=== PATIENT | male | born 1935 | race Caucasian/White ===

== ENCOUNTER 2017-07-02 12:55 | Emergency (ER) | payer MEDICARE, OTHER ==
[~2017-07-02] VITALS: Ht 185.4 cm; Wt 87.7 kg
[2017-07-02 12:55] VITALS: TEMP 98
[2017-07-02 13:29] LABS: BASO # 0.1 (0.0-0.2); BASO % 0.9 % (0.0-2.0); EOS # 0.1 (0.0-0.7); EOS % 0.9 % (0-4.0); GRAN % 85.2 % (42.2-75.2); HEMATOCRIT 42.4 % (42.0-52.0); HEMOGLOBIN 14.1 g/dl (13.5-18.0); LYMPH # 0.7 (1.2-3.4); LYMPH % 6.6 % (20.0-51.0); MEAN CELL VOLUME 90 fl (80.0-100.0); MEAN CORPUSCULAR HEMOGLOBIN 30 pg (27.0-31.0); MEAN CORPUSCULAR HGB CONC 33 g/dl (33.0-37.0); MEAN PLATELET VOLUME 10.1 fl (7.4-10.4); MONO # 0.6 (0.1-0.6); PLATELET COUNT 175 K/mm3 (130-400); RED BLOOD COUNT 4.73 M/mm3 (4.20-5.60); REDCELL DISTRIBUTION WIDTH-CV 12.4 % (11.5-14.5)
[2017-07-02 13:41] LABS: ALBUMIN 3.9 gm/dL (3.5-5.0); BILIRUBIN,TOTAL 0.5 mg/dL (0.0-1.0); C-REACTIVE PROTEIN 1.9 mg/dL (0.0-0.9); CALCIUM 8.6 mg/dL (8.4-10.2); CREATININE, serum 1.1 mg/dL (0.66-1.25); POTASSIUM 4.1 mmol/L (3.4-5.0); TOTAL PROTEIN 7.1 gm/dL (6.4-8.2)
[2017-07-02 14:28] LABS: COLLECTION METHOD CLEAN CATCH
[2017-07-02] MEDS ORDERED: TAMIFLU 75MG75 MG PO (14:30)
[2017-07-02] MEDS ORDERED: ZOFRAN ODT4 MG PO (14:31)
[2017-07-02 14:36] LABS: BUDDING YEAST Present /hpf; MUCOUS Present /lpf; PH 6 (5-8); SQUAMOUS EPITHELIAL None Seen /hpf; URINE APPEARANCE Cloudy; URINE BACTERIA None Seen /hpf; URINE BILIRUBIN Negative (NEGATIVE); URINE BLOOD 1+ (NEGATIVE); URINE COLOR Yellow; URINE GLUCOSE Negative (NEGATIVE); URINE KETONE 1+ (NEGATIVE); URINE LEUKOCYTE ESTERASE Negative (NEGATIVE); URINE NITRATE Negative (NEGATIVE); URINE PROTEIN(semi-quant) Negative (NEGATIVE); URINE UROBILINOGEN Negative (NEGATIVE)
[2017-07-02 14:46] VITALS: BP 137/81; PULSE 78
== END 2017-07-02 14:53 | disposition home or self-care (01) ==
LOC: COL.ER 12:55
PROVIDERS: Family Medicine
DX: J10.1 Influenza due to other identified influenza virus with other respiratory manifestations (principal); E86.0 Dehydration; Z90.49 Acquired absence of other specified parts of digestive tract
CPT/HCPCS: J7030

== ENCOUNTER → 2018-01-01 | Outpatient (REF) ==
[~2018-01-01] MED LIST: TAMIFLU 75MG75 MG PO; ZOFRAN ODT4 MG PO
== END ==
LOC: ZLAB.WCH 16:18
DX: Z01.89 Encounter for other specified special examinations (principal)
CPT/HCPCS: G0103

== ENCOUNTER 2018-04-18 10:52 | Inpatient (IN) | payer MEDICARE, OTHER ==
[~2018-04-18] VITALS: Ht 182.9 cm; Wt 84.0 kg
[2018-06-05] VITALS (12 sets, daily range): BP systolic 129–155; BP diastolic 61–81; PULSE 54–97; TEMP 97.1–98.5
[2018-06-05] MEDS ORDERED: VITAMIN C500 MG PO (07:28)
[2018-06-05] MEDS ORDERED: GLUCOSAMINE SUL1 TAB PO (07:28)
--- NOTE | 2018-06-05 12:40 | NUR ---
PATIENT BACK IN ROOM 331 POST OP RTK. A&O. VSS. DENIES PAIN. PATIENT IS UNABLE TO MOVE BLE AT THIS TIME. RTK DRESSING IS CD&I WITH AQUACEL AND ICE PACK INPLACE. TECHNOL BRACE TO RLE. TEDS & SCD'S TO BLE. BLANKENSHIP TO DEPENDENT DRAINAGE WITH SMALL AMOUNTS OF CLEAR YELLOW URINE NOTED. IV FLUIDS INFUSING VIA PUMP. LIQUIDS AT BEDSIDE. HEAD TO TOE ASSESSMENT WNL. FAMILY AT BEDSIDE. ORIENTED TO ROOM. CALL LIGHT IN REACH. NO OTHER NEEDS.
--- NOTE | 2018-06-05 13:50 | NUR ---
PATIENT CALLED OUT C/O NAUSEA. NOTED 150CC OF DARK GREEN EMESIS. GAVE PRN ZOFRAN IV. COOL CLOTH ON HEAD. PATIENT REPORTS HE FEELS BETTER. AT BEDSIDE. WILL MONITOR.
--- NOTE | 2018-06-05 20:00 | NUR ---
Assessment completed. Patient is A&O x 4. VSS, on room air. Scheduled Tylenol given per orders and started Ultram for pain control. Patient reports that he does not like to take Oxycodone as it makes him mean. Aquacell dressing to right knee is CDI with an ice pack. Pedal pulses intact. BLE preet hose/scds on. Patient is able to lift is RLE with no assistance. Ambulated with standby assist with walker and gait belt, ambulated approximately 200 feet in the hallway with staff this evening. Tolerating diet with no c/o nausea. Voiding with no difficulities. IVF infusing with intermittent antibiotic. Denies any concerns or needs. Bed is in a low position with call light in reach.
[2018-06-06 00:18] VITALS: BP 123/73; PULSE 64; TEMP 97.9
[2018-06-06 03:41] VITALS: BP 131/65; PULSE 67; TEMP 98.2
--- NOTE | 2018-06-06 04:43 | NUR ---
Patient has rested for short periods of time through the night. VSS, remains on room air. Tramadol and scheduled Tylenoles have been given for pain control, refuses Oxycodone as he states in the past it has made him mean. Technol brace removed at this time from E. Aquacell dressing to right knee remains CDI with a fresh ice pack applied. Denies any nausea. No concerns or needs at this time. Bed remains in a low position with call light in reach.
[2018-06-06 06:06] LABS: HEMATOCRIT 38.4 % (42.0-52.0)
--- NOTE | 2018-06-06 07:06 | NUR ---
Report from Rachel HUERTA. Jaylen DAMON in to see patient see computer for orders.
[2018-06-06 07:20] VITALS: BP 134/71; PULSE 71; TEMP 97.9
[2018-06-06] MEDS ORDERED: ULTRAM 50MG TAB50 MG PO (07:20)
[2018-06-06] MEDS ORDERED: ASPI325T6 PO (07:20)
[2018-06-06] MEDS ORDERED: TYLENOL 500MG500 MG PO (07:21)
[2018-06-06] MEDS ORDERED: COLACE 100100 MG/CAP PO (07:21)
--- NOTE | 2018-06-06 08:57 | NUR ---
PT EATING BREAKFAST, AM MEDS GIVEN ORDERED. LAST DOSE OF IV ABX COMPLTE. PT WOULD LIKE TO DISCHARGE LATER TO DAY. IV FLUIDS DISCONTINUED PER ORDERS. PT TO HAVE BLANKENSHIP REMOVED AFTER AM THEARPY.
--- NOTE | 2018-06-06 09:39 | NUR ---
PT UNABLE TO COMPLETE AM THERAPY. BECAME DIAPHORETIC AND DIZZY WITH MOVEMENT. PT SETTLED TO RECLINER AND PT REPORTS FEELING BETTER. WILL CONTINUE TO MONITOR.
[2018-06-06 11:27] VITALS: BP 136/59; PULSE 64; TEMP 97.6
--- NOTE | 2018-06-06 12:22 | NUR ---
First visit from the stock patcher. No needs right now.
--- NOTE | 2018-06-06 14:20 | NUR ---
pt did better this pm therapy. able to ambulate to stairs and back with therapy stand by. Pt wants to discharge today. Varela catheter discontinued per orders.
--- NOTE | 2018-06-06 14:26 | NUR ---
BRUCE met with patient to discuss discharge planning. Patient lives in [place] with his [place]. His PCP Is Dr Emmanuel Hensley and he obtains his medications from [facility]. Patient has the equipment needed and plans to return home with outpatient therapy. Patients would like to know if patient will dc today. BRUCE talks with nurse and informs them that he will let them know once he has heard from the dr. There are no anticipated discharge needs at this time.
[2018-06-06 15:53] VITALS: BP 137/64; PULSE 62; TEMP 97.8
--- NOTE | 2018-06-06 18:54 | NUR ---
Report to Rachel HUERTA.
--- NOTE | 2018-06-06 19:45 | NUR ---
Assessment completed. Patient is A&O x 4. VSS, on room air. Denies any pain at this time. Aquacell dressing to right knee is CDI with an ice pack maintained to knee. Pedal pulses intact. BLE preet hose/scds on. Patient is up with standby assist with walker, gait is steady. Ambulated 200 feet this evening with walker in the hallway. Tolerating diet with no c/o nausea. Voiding with no difficulities. INT to left wrist. Patient voices disappointment that he wasn't able to discharge today but is hoping to discharge early tomorrow. Denies any concerns or needs at this time. Bed is in a low position with call light in reach.
[2018-06-06 20:31] VITALS: BP 138/66; PULSE 74; TEMP 98
--- NOTE | 2018-06-06 22:38 | NUR ---
Patient requested Ultram for right knee/thigh pain, reports it only hurts when he lifts his leg up to go to the bathroom. Patient was up independently in room with walker to the bathroom. Technol brace applied to RLE at this time.
[2018-06-07 00:54] VITALS: BP 139/62; PULSE 77; TEMP 98.2
[2018-06-07 05:09] VITALS: BP 140/78; PULSE 63; TEMP 98.1
[2018-06-07 06:05] LABS: HEMATOCRIT 35.7 % (42.0-52.0); HEMOGLOBIN 12.1 g/dl (13.5-18.0)
--- NOTE | 2018-06-07 06:31 | NUR ---
Patient has rested well through the night, states he's ready to go home today. VSS. Pain controlled with Ultram. Technol brace removed at this time. Aquacell dressing to right knee remains CDI with a fresh ice pack applied this morning. Denies any concerns or needs at this time.
[2018-06-07] MEDS ORDERED: ULTRAM 50MG TAB50 MG PO (06:42)
--- NOTE | 2018-06-07 06:51 | NUR ---
Report from Rachel HUERTA.
[2018-06-07 08:12] VITALS: BP 136/65; PULSE 81; TEMP 99.2
--- NOTE | 2018-06-07 09:32 | NUR ---
PT UP TO SHOWER WITH OT. DRESSING CHANGE COMPLETE ORDERED. SM AMT OF [place] DRAINAGE TO DISTAL PORTION OF INCISION. PT TOLERATED WELL.
--- NOTE | 2018-06-07 12:32 | NUR ---
DISCHARGE INSTRUCTIONS GIVEN TO PATIENT AND SPOUSE. PT TAKEN TO FRONT PER WHEEL CHAIR.
== END 2018-06-07 10:30 | disposition home or self-care (01) | DRG 470 ==
LOC: JCC 06-05 06:38
PROVIDERS: ADMIT Orthopaedic Surgery
PROC: 0SRC0J9 Replacement of Right Knee Joint with Synthetic Substitute, Cemented, Open Approach (ICD-10-PCS; principal; 2018-06-05 09:00)
DX: M17.11 Unilateral primary osteoarthritis, right knee (principal); Z87.891 Personal history of nicotine dependence
CPT/HCPCS: A4314; A9284; C1713; C1776; J0690; J1100; J2250; J2405; J2704; J7030; J7120

== ENCOUNTER → 2018-05-24 | Outpatient (CLI) | payer MEDICARE, OTHER | LOC: COL.LAB 11:23 | DX: Z01.812 Encounter for preprocedural laboratory examination (principal) ==

== ENCOUNTER 2022-07-22 08:11 | Emergency (ER) | payer MEDICARE, OTHER ==
[~2022-07-22] VITALS: Ht 185.4 cm; Wt 81.8 kg
[~2022-07-22 08:11] MED LIST changes: +ASPI325T6 PO; +COLACE 100100 MG/CAP PO; +GLUCOSAMINE SUL1 TAB PO; +PERCOCET 325 MG1 TA2 PO; +TYLENOL 500MG500 MG PO; +ULTRAM 50MG TAB50 MG PO; +VITAMIN C500 MG PO
[2022-07-22 08:41] VITALS: TEMP 97.9
[2022-07-22 09:10] LABS: BASO % 0.5 % (0.0-2.0); EOS # 0.1 K/mm3 (0.0-0.7); EOS % 1.1 % (0.0-4.0); GRAN # 4.1 K/mm3 (1.4-6.5); GRAN % 64.2 % (42.2-75.2); HEMATOCRIT 43.3 % (42.0-52.0); HEMOGLOBIN 14.7 g/dl (13.5-18.0); LYMPH # 1.4 K/mm3 (1.2-3.4); LYMPH % 22.8 % (20.0-51.0); MEAN CELL VOLUME 89 fl (80.0-100.0); MEAN CORPUSCULAR HEMOGLOBIN 30 pg (27-31); MEAN CORPUSCULAR HGB CONC 34 g/dl (33.0-37.0); MEAN PLATELET VOLUME 10.2 fl (7.4-10.4); MONO # 0.7 K/mm3 (0.1-0.6); MONO % 11.1 % (1.7-9.3); PLATELET COUNT 155 K/mm3 (130-400); RED BLOOD COUNT 4.85 M/mm3 (4.20-5.60); REDCELL DISTRIBUTION WIDTH-CV 13.6 % (11.5-14.5)
[2022-07-22 09:29] LABS: ALBUMIN 3.3 gm/dL (3.4-4.8); BILIRUBIN,TOTAL 0.5 mg/dL (0.2-1.2); CREATININE, serum 1.25 mg/dL (0.72-1.25); POTASSIUM 3.7 mmol/L (3.5-4.5); TOTAL PROTEIN 7.3 gm/dL (6.2-8.1)
[2022-07-22 10:37] VITALS: BP 151/84; PULSE 67
== END 2022-07-22 10:37 | disposition home or self-care (01) ==
LOC: COL.ER 08:11
PROVIDERS: Family Medicine
DX: U07.1 COVID-19 (principal); R05.9 Cough, unspecified; R53.1 Weakness

== ENCOUNTER 2022-07-25 09:24 | Emergency (ER) | payer MEDICARE, OTHER ==
[~2022-07-25] VITALS: Ht 188 cm; Wt 81.8 kg
[2022-07-25 09:48] VITALS: BP 111/66; PULSE 81; TEMP 97.5
== END 2022-07-25 11:12 | disposition left against medical advice (07) ==
LOC: COL.ER 09:24
DX: U07.1 COVID-19 (principal); R63.0 Anorexia; Z87.891 Personal history of nicotine dependence; Z73.0 Burn-out

== ENCOUNTER 2024-01-18 16:32 | Inpatient (IN) | payer MEDICARE, OTHER ==
[~2024-01-18] VITALS: Ht 185.4 cm; Wt 66.9 kg
[2024-01-18 18:48] LABS: HEMATOCRIT 38.5 % (42.0-52.0); HEMOGLOBIN 12.7 g/dl (13.5-18.0); MEAN CELL VOLUME 100 fl (80.0-100.0); MEAN CORPUSCULAR HEMOGLOBIN 33 pg (27-31); MEAN CORPUSCULAR HGB CONC 33 g/dl (33.0-37.0); MEAN PLATELET VOLUME 10.3 fl (7.4-10.4); PLATELET COUNT 268 K/mm3 (130-400); RED BLOOD COUNT 3.85 M/mm3 (4.20-5.60); REDCELL DISTRIBUTION WIDTH-CV 13.2 % (11.5-14.5)
[2024-01-18 18:53] LABS: INR 1.6 (0.8-3.0)
[2024-01-18 18:56] LABS: PARTIAL THROMBOPLASTIN TIME 30.8 SECONDS (26.0-37.0)
[2024-01-18 19:09] LABS: ALANINE AMINOTRANSFERASE 39 U/L (0-55); ALBUMIN 2.3 g/dL (3.4-4.8); ALKALINE PHOSPHATASE 297 U/L (40-150); ANION GAP 10 mmol/L (7-16); AST,SGOT 49 U/L (5-34); BILIRUBIN,TOTAL 0.7 mg/dL (0.2-1.2); BLOOD UREA NITROGEN 55 mg/dL (8-26); CALCIUM 9.6 mg/dL (8.4-10.2); CHLORIDE 100 mEq/L (98-107); GLUCOSE 94 mg/dL (70-99); LIPASE 150 U/L (8-78); POTASSIUM 4.5 mEq/L (3.5-4.5); SODIUM 132 mEq/L (136-145); TOTAL PROTEIN 9.2 g/dl (6.2-8.1)
[2024-01-18 19:12] LABS: ALCOHOL(ethanol),MEDICAL < 10 mg/dL (0-10)
[2024-01-18 19:16] LABS: BAND 1 % (0-10); EOSINOPHIL 29 % (0-4); LYMPHOCYTE 9 % (20.0-51.0); NEUTROPHILS 57 % (42.0-75.2)
[2024-01-18 19:20] LABS: PLATELET ESTIMATE NORMAL (NORMAL)
[2024-01-18] MEDS ORDERED: NS 1,000 ML IV ONE (20:00)
[2024-01-18 20:45] LABS: COLLECTION METHOD CLEAN CATCH
[2024-01-18 20:53] LABS: PH 5.5 (5.0-8.5); URINE APPEARANCE CLEAR (CLEAR/HAZY); URINE BLOOD NEGATIVE (NEGATIVE); URINE COLOR Dark Yellow (YELLOW); URINE GLUCOSE TRACE (NEGATIVE); URINE KETONE TRACE (NEGATIVE); URINE NITRATE NEGATIVE (NEGATIVE); URINE PROTEIN(semi-quant) 1+ (NEGATIVE)
[2024-01-18] MEDS ORDERED: cefTRIAXone 1 G in Water For Injection,Sterile 10 ML IV ONE (21:15)
[2024-01-18] MEDS ORDERED: Folic Acid 1 MG,Thiamine 200 MG in NS 1,000 ML IV ONE (23:15)
[2024-01-19] VITALS (16 sets, daily range): BP systolic 72–125; BP diastolic 37–74; PULSE 55–97; TEMP 97.5–99.8
[2024-01-19] MEDS ORDERED: cefTRIAXone 1 G in Water For Injection,Sterile 10 ML IV ONE (02:45)
[2024-01-19] MEDS ORDERED: NS 500 ML IV ONE (02:45)
[2024-01-19] MEDS ORDERED: Acetaminophen 325 MG TAB PO PRN (03:45)
[2024-01-19] MEDS ORDERED: NS 1,000 ML IV SCH (03:45)
[2024-01-19] MEDS ORDERED: Ondansetron 4 MG/2 ML VIAL IV PRN (03:45)
[2024-01-19] MEDS ORDERED: Mag/Al Hydrox/Simeth Susp 30 ML CUP PO PRN (04:00)
[2024-01-19] MEDS ORDERED: LORazepam 2 MG/ML 1 ML VIAL IV PRN (04:00)
[2024-01-19] MEDS ORDERED: PROTONIX 40MG T40 MG PO (06:07)
[2024-01-19] MEDS ORDERED: LIPITOR 40MG TA40 MG PO (06:08)
[2024-01-19] MEDS ORDERED: PLAVIX 75MG TAB75 MG PO (06:08)
[2024-01-19] MEDS ORDERED: COREG 3.123.125 MG/T PO (06:08)
[2024-01-19] MEDS ORDERED: JARDIANCE10 PO (06:09)
--- NOTE | 2024-01-19 06:57 | NUR ---
patient arrived from ED around 0500, alert and oriented x3 with occasional confusion and forgetfullness. denies chest pain and shortness of breath. IV in RF is patent, site is CDI with NS running at 100 ml/hr. 0559- NELSON Purcell notified of critical troponin, trending down. slight blanchable redness to upper coccyx region noted. tele notified RN of pt in Afib with rate in 120s, 0642- Dr. Okeefe notified of rate and rhythym change, pt denies chest pain, BPs remaining, EKG order placed, RT notified. fall precautions in place, call light within reach. pt has no further needs, questions or concerns at this time. report given to DEANNA Mcduffie, care passed at this time.
[2024-01-19] MEDS ORDERED: Heparin 5,000 UNITS/ML 1 ML VIAL SQ SCH (08:00)
[2024-01-19] MEDS ORDERED: Multivitamin TAB PO SCH (08:00)
[2024-01-19] MEDS ORDERED: Atorvastatin 40 MG TAB PO SCH (08:29)
[2024-01-19] MEDS ORDERED: Pantoprazole 40 MG in NS 10 ML IV SCH (09:00)
[2024-01-19] MEDS ORDERED: Azithromycin 250 MG TAB PO SCH (09:00)
[2024-01-19] MEDS ORDERED: Clopidogrel 75 MG TAB PO SCH (09:00)
[2024-01-19] MEDS ORDERED: Folic Acid 1 MG TAB PO SCH (09:00)
[2024-01-19] MEDS ORDERED: Empagliflozin 10 MG TAB PO SCH (09:00)
--- NOTE | 2024-01-19 09:36 | NUR ---
Initial visit; Patient states he is doing well and his family member stated they are [place] residents so aren't far from home. Patient thanked Line Runner for looking in on him and keeping him in her prayers.
--- NOTE | 2024-01-19 09:56 | NUR ---
PT RESTING IN BED. DAUGHTER AT BEDSIDE. AM MEDS GIVEN ORDERED. NO ORDERS RECIEVED AND GIVEN. PT REFUSED BREAKFAST EXCEPT FOR COFFEE. PT SLEEPING NOW. REDDENED AREA ABOVE COCCYX BLANCHABLE.
[2024-01-19] MEDS ORDERED: Amiodarone 450 MG in D5W Excel 250 ML IV SCH ×2 (10:14→16:14)
[2024-01-19] MEDS ORDERED: NITROSTAT0.4 MG/TAB SL (10:35)
[2024-01-19] MEDS ORDERED: MULTIPLE VITAMI1 CAP PO (10:35)
--- NOTE | 2024-01-19 12:09 | NUR ---
REPORTED TROPONIN LEVEL TO ROBBIN HUERTA FOR TARAH.
--- NOTE | 2024-01-19 15:04 | NUR ---
REPORT TO Brenton HUERTA.
--- NOTE | 2024-01-19 15:05 | NUR ---
REPORT RECEIVED FROM DEANNA GARRISON. PICC TO RIGHT UPPER ARM WITH AMIODARONE RUNNING AT 34.5 MLS/HR. PT ON 3L NASAL CANNULA. PT STATES HE WANTS TO LEAVE BUT DENIES OTHER NEEDS AT THIS TIME
--- NOTE | 2024-01-19 16:10 | NUR ---
This nurse and primary nurse called to bedside for low bp's. Pt. in the 80's/ 40's. Rechecked at this time bp at 72/37, CAT call initiated. ICU charge to bedside. Dr. Okeefe notified, and requested to call Dr. Melendrez. Attempted to call Parvin and SADIE Strickland without success. Dr. Okeefe called again, with new orders. 500 ml bolus ordered, started from current NS running. Notified RT for ekg. Amio gtt on hold at this time. Will remain at bedside.
--- NOTE | 2024-01-19 16:48 | NUR ---
THIS NURSE NOTIFIED THAT PTS HYPOTENSIVE. UPON ENTERING PT STATES HE FEELS FINE AND DENIES ANY PAIN OR SHORTNESS OF BREATH. DEPARTMENT SALES MANAGER AT BEDSIDE. PT CONTINUES TO BE HYPOTENSIVE AND CAT CALL CALLED. PT ASYMPTOMATIC AT THIS TIME.
[2024-01-19] MEDS ORDERED: Carvedilol 3.125 MG TAB PO SCH (17:00)
--- NOTE | 2024-01-19 17:08 | NUR ---
Sales Person met with patient and his daughter, Cindy (ph#[phone]) to discuss discharge planning. Patient had difficulty hearing SW and requested she ask Cindy questions. Patient lives alone in [place] and sees Dr. Valencia for primary care. Patient has two daughters that live in [place], Cindy and Yfn. Patient gets his medications from [facility]. Patient does not drive due his alcohol use and relies on his family for transportation. Per daughter, patient goes on "walk abouts" daily where he walks to the nearby liquor store for vodka. Patient drinks about a bottle of vodka daily, with coke. Patient does not use DME and per Cindy, it's because he refuses to. Cindy stated there are disagreements among family about plan of care for patient. Cindy stated her sister thinks patient needs a fpc. At this time, discharge plan is to return home with possible HH. BRUCE presented Medicare.gov list of HH options. Cindy reported having DPOA-HC for patient and will have bring it in. BRUCE discussed decision making capacity and encouraged Cindy to follow up with PCP about this as it will affect family's ability to place him if that is what they desire, as patient will not be agreeable. Cindy stated patient has a Trust that would be able to pay for fpc if needed. Discharge Plan: Home with HH, pending agency choice
--- NOTE | 2024-01-19 17:47 | NUR ---
DR MORRIS ON FLOOR AND UPDATED ON EVENTS. THIS NURSE TOLD TO RESTART AMIODARONE DRIP AT 0.5 MG/MIN.
--- NOTE | 2024-01-19 18:00 | NUR ---
Vitals improved, Dr. haile to the floor and new orders recieved.
--- NOTE | 2024-01-19 19:28 | NUR ---
REPORT GIVEN TO DEANNA CONDE
[2024-01-19] MEDS ORDERED: cefTRIAXone 1 G in Water For Injection,Sterile 10 ML IV SCH (22:00)
[2024-01-20] VITALS (13 sets, daily range): BP systolic 104–169; BP diastolic 46–76; PULSE 66–89; TEMP 98.1–98.7
--- NOTE | 2024-01-20 00:23 | NUR ---
patient lying in bed, alert and oriented to self only, forgetful and confused. denies chest pain and shortness of breath. PICC in [facility] is patent, site CDI with amio gtt running at 0.5 mg/min and NS running at 100 ml/hr. blanchable redness to upper coccyx noted, pt respositions self, barrier cream offered and refused by pt. fall precautions in place, call light within reach. pt has no further needs, questions or concerns at this time.
[2024-01-20 06:13] LABS: MEAN CORPUSCULAR HGB CONC 34 g/dl (33.0-37.0); MEAN PLATELET VOLUME 11.3 fl (7.4-10.4); PLATELET COUNT 188 K/mm3 (130-400); RED BLOOD COUNT 2.93 M/mm3 (4.20-5.60); REDCELL DISTRIBUTION WIDTH-CV 13.2 % (11.5-14.5)
[2024-01-20 06:19] LABS: HEMATOCRIT 28.7 % (42.0-52.0); HEMOGLOBIN 9.7 g/dl (13.5-18.0); MEAN CELL VOLUME 98 fl (80.0-100.0); MEAN CORPUSCULAR HEMOGLOBIN 33 pg (27-31)
--- NOTE | 2024-01-20 06:24 | NUR ---
critical lab WBC called to Dr. Okeefe at this time
[2024-01-20 06:27] LABS: ALBUMIN 1.7 g/dL (3.4-4.8); BILIRUBIN,TOTAL 0.4 mg/dL (0.2-1.2); CALCIUM 7.7 mg/dL (8.4-10.2); CHOLESTEROL RISK RATIO 3.5; CREATININE, serum 2.08 mg/dL (0.72-1.25); TOTAL PROTEIN 6.9 g/dl (6.2-8.1)
[2024-01-20 06:47] LABS: THYROID STIMULATING HORMONE 4.338 uIU/mL (0.350-4.940)
--- NOTE | 2024-01-20 07:48 | NUR ---
PT AMBULATING TO BATHROOM BY THIS NURSE, REFUSING WALKER AND OXYGEN". PT BACK TO BED AND THIS NURSE REMINDING PT OF OXYGEN USE AND PT STILL REFUSING, PT EDUCATED ON THIS. BREAKFAST SET UP. BED IN LOWEST POSITION, CALL LIGHT IN REACH, BED ALARM ON
[2024-01-20 07:53] LABS: PLATELET ESTIMATE NORMAL (NORMAL)
--- NOTE | 2024-01-20 09:00 | NUR ---
PT LAYING IN BED UPON ENTERING. ASSESSMENT DONE, MEDS GIVEN PER ORDER. PICC TO RIGHT UPPER ARM THAT IS CLEAN DRY AND INTACT. AMIODARONE RUNNING AT 17.3 MLS/HR IN PURPLE PORT, NORMAL SALINE RUNNING AT 100 MLS/HR IN RED PORT. PT ON 3L NASAL CANNULA. PT DENIES PAIN OR NEEDS AT THIS TIME. PT REEDUCATED ON BED ALARM AND CALL LIGHT. BED IN LOWEST POSITION, CALL LIGHT IN REACH, BED ALARM ON
[2024-01-20] MEDS ORDERED: Cefepime 1 G in Water For Injection,Sterile 10 ML IV SCH (09:30)
[2024-01-20] MEDS ORDERED: Doxycycline Monohydrate 100 MG CAP PO SCH (09:35)
--- NOTE | 2024-01-20 11:31 | NUR ---
SW met with two of patient's daughters to follow up on discharge plan. They feel that patient would benefit from rehab at discharge instead of returning home with HH. Medicare.gov SNF list provided for review. They asked for referral to [facility]. Referral faxed.
[2024-01-20] MEDS ORDERED: Amiodarone 450 MG in D5W Excel 250 ML IV SCH ×3 (13:00→23:14)
--- NOTE | 2024-01-20 14:17 | NUR ---
Data: Patient's visitor declined spiritual care visit offered during [employer] Selector rounds. Patient was sleeping. Assessment: None at this time. Plan of Care: Chaplains will remain available as needed/requested while Patient is admitted to this hospital.
--- NOTE | 2024-01-20 15:26 | NUR ---
Data: Follow-up visit. Patient is awake. Assessment: Patient desired prayer; is grateful for his Daughter being with him in the room. Plan of Care: Aluminum Molder provided prayer. Chaplains will remain available as needed/requested while Patient is admitted to this hospital.
--- NOTE | 2024-01-20 16:52 | NUR ---
PER CARDIOLOGY NOTED PT TO START ORAL AMIODARONE, NO ORDERS AT THIS TIME. DR LIN CALLED AND CONFIRMED THIS. DR WU UPDATED
--- NOTE | 2024-01-20 17:23 | NUR ---
HOSPITALIST NOTIFIED THAT AMIODARONE TO DISCONTINUE NOW PER ORDER AND ASKED IF HE WANTED DRIP TO CONTINUE UNTIL FIRST DOSE. THIS NURSE TOLD TO CONTINUE DRIP FOR 2 HOURS AFTER FIRST DOSE OF AMIODARONE
--- NOTE | 2024-01-20 19:03 | NUR ---
REPORT GIVEN TO DEANNA CONDE
[2024-01-20] MEDS ORDERED: Amiodarone 200 MG TAB PO SCH (21:00)
[2024-01-21] VITALS (14 sets, daily range): BP systolic 95–145; BP diastolic 34–63; PULSE 64–100; TEMP 97.8–101.2
--- NOTE | 2024-01-21 00:03 | NUR ---
patient lying in bed, alert and oriented to self. denies chest pain. reports feeling short of breath, pt educated and reminded to keep NC on for o2. pt verbally understands, yet is forgetful and found multiple times to have taken O2 NC off. pt desats during ambulation and reports "feeling bad and short of breath", O2 increased to 5L, sats around 91%. pt resting in bed. PICC in [facility] is patent, site CDI with NS running at 100 ml/hr, amio PO administered, per orders amio gtt discontinued at 2300. fall precautions in place, call light within reach. pt has no further needs, questions or concerns at this time.
[2024-01-21] MEDS ORDERED: OLANZapine 5 MG,Water For Injection,Sterile 1 ML IM PRN (02:30)
[2024-01-21 06:16] LABS: MEAN CELL VOLUME 101 fl (80.0-100.0); MEAN CORPUSCULAR HGB CONC 33 g/dl (33.0-37.0); MEAN PLATELET VOLUME 11.1 fl (7.4-10.4); PLATELET COUNT 157 K/mm3 (130-400); RED BLOOD COUNT 3.01 M/mm3 (4.20-5.60); REDCELL DISTRIBUTION WIDTH-CV 13.4 % (11.5-14.5)
[2024-01-21 06:27] LABS: ALBUMIN 1.6 g/dL (3.4-4.8); BILIRUBIN,TOTAL 0.5 mg/dL (0.2-1.2); CALCIUM 7.4 mg/dL (8.4-10.2); CREATININE, serum 2.02 mg/dL (0.72-1.25); TOTAL PROTEIN 6.9 g/dl (6.2-8.1)
[2024-01-21] MEDS ORDERED: Albuterol/Ipratropium 3 MG-0.5 MG/3 ML Neb Soln IH PRN (06:30)
[2024-01-21 06:34] LABS: HEMATOCRIT 30.5 % (42.0-52.0); HEMOGLOBIN 9.9 g/dl (13.5-18.0); MEAN CORPUSCULAR HEMOGLOBIN 33 pg (27-31)
[2024-01-21 07:33] LABS: BAND 12 % (0-10); EOSINOPHIL 27 % (0-4); LYMPHOCYTE 6 % (20.0-51.0); NEUTROPHILS 50 % (42.0-75.2); PLATELET ESTIMATE NORMAL (NORMAL)
[2024-01-21 07:52] LABS: BAND 9 % (0-10)
[2024-01-21 07:53] LABS: LYMPHOCYTE 3 % (20.0-51.0); NEUTROPHILS 54 % (42.0-75.2)
[2024-01-21 07:54] LABS: EOSINOPHIL 29 % (0-4)
[2024-01-21] MEDS ORDERED: Thiamine 100 MG TAB PO SCH (09:00)
--- NOTE | 2024-01-21 09:03 | NUR ---
Patient's daughter provided copy of DPOA document which was placed on patient's chart. Discharge plan: SB
--- NOTE | 2024-01-21 09:50 | NUR ---
PT LAYING IN BED UPON ENTERING. ASSESSMENT DONE, MEDS GIVEN PER ORDER. PT DENIES PAIN. PT ON 4L NASAL CANNULA AND ASKING IF HE STILL NEEDS IT, THIS NURSE EDUCATED ON THIS. PT ORIENTED TO SELF AND PLACE WITH CONFUSED SPEECH NOTED. PICC TO RIGHT UPPER ARM, PURPLE AND RED PORTS FLUSH WITH BLOOD RETURN. BLOOD PRESSURE RECHECKED 113/55. DAUGHTERS AT BEDSIDE AND UPDATED. PHYSICAL THERAPY AT BEDSIDE UPON THIS NURSE LEAVING
--- NOTE | 2024-01-21 13:24 | NUR ---
PT C/O PAIN "ALL OVER". PRN TYLENOL GIVEN.
--- NOTE | 2024-01-21 19:13 | NUR ---
REPORTS GIVEN TO DEANNA CERVANTES
[2024-01-21] MEDS ORDERED: Budesonide Neb Susp 0.5 MG/2 ML AMP IH SCH (22:00)
[2024-01-21] MEDS ORDERED: Furosemide 40 MG/4 ML VIAL IV ONE (22:00)
[2024-01-21 22:20] LABS: ARTERIAL BLD GAS TCO2 CT 14.3; ARTERIAL BLOOD GAS HCO3 13.7 meq/L (22-26)
[2024-01-21 22:21] LABS: ARTERIAL BLOOD GAS PO2 45.7 mmHg (80-100)
--- NOTE | 2024-01-21 22:22 | NUR ---
BLOOD GAS SUSPECTED TO BE A MIXED BLOOD GAS. CRITICAL RESULTS CALLED TO PROVIDER. PROVIDER AWARE, NO NEW ORDERS TO OBTAIN ABG.
[2024-01-21] MEDS ORDERED: Metoprolol Tartrate 5 MG/5 ML VIAL IV ONE (23:00)
[2024-01-22] VITALS (15 sets, daily range): BP systolic 97–121; BP diastolic 45–79; PULSE 60–88; TEMP 97.4–99.3
[2024-01-22] MEDS ORDERED: LORazepam 2 MG/ML 1 ML VIAL IV ONE ×2 (00:15→02:15)
--- NOTE | 2024-01-22 02:00 | NUR ---
Patient assessed around 2009. Alert and oriented to self at that time. Denied having pain and discomfort. PICC to KALEY. Denies SOB and dyspnea. RT in room at time of assessment and decreased oxygen from 4.5 to 3.5 L/min via NC. LS CTA in upper, coarse in lower. HRR. Telemetry in place: normal sinus. BSAx4. No edema. Voiced no questions, needs, or concerns at that time. Around 2149, this nurse came out of another room and saw RT and NELSON Barfield in room. supervisor boiler repair had assisted patient to bathroom, and noticed patient breathing hard, and had called RT. Oxygen had been low, and Lico was called. Nebulizer treatment was given, and gave IV Lasix at 0 per orders. ABG obtained. Around 2224, telemetry called this nurse and stated HR was in the 130s. Ordered STAT EKG and called RT. Oxygen 70s, increased oxygen. Lico notified. Patient had been trying to go to the bathroom. Unable to use urinal without standing. Order for catheter. EKG showing A-fib RVR. Order for Metoprolol. Patient refusing catheter for this nurse, but supervisor brew house convinced patient to allow it to be placed. Clear yellow urine. Gave Metoprolol. HR decreased to 80s. Patient put on non-rebreather mask, 10 L. Patient able to start to calm down. 2324 patient remains calm, 100% on non-rebreather mask. Changed to 10 L/min via OM. Temp 101.2, and anxious around 0030. Patient cotinues to go in and out of A-fib, when restless and trying to get up, HR increases to 130s, but able to decrease rate while laying in bed. Call placed to NELSON Barfield as patient continues to be anxious, pulling at oxymask, and trying to get out of bed. New order to give another 0.5 mg Ativan. Given PRN Acetaminophen and one time dose of Ativan at that time.
--- NOTE | 2024-01-22 04:16 | NUR ---
Patient continues to have anxiety/agitation. Keeps pulling off oxymaks. Changed to NC, but continues to pull off. Reviewing chart, patient had PRN Ativan for alcohol detox. Spoke with NELSON Barfield, thang to initiate detox protocol. Scored 17. Give PRN Ativan. Patient currently keeping on oxygen via NC at this time at 4 L/min.
--- NOTE | 2024-01-22 06:32 | NUR ---
Around 0530, patient diaphretic. Afebrile. Linens changed. During bed change, patient hitting at staff. Afterwards patient seemed to go back to sleep. VS obtained. Called and updated NELSON Barfield on VS, as well as increased drowsyness and diaphoretic episode. No new orders at this time. Remains on oxygen at 4 L/min via NC. In bed wiht call light within reach. High fall risk precautions in place. Bed alarm on.
--- NOTE | 2024-01-22 06:34 | NUR ---
Mepilex placed to coccyx.
[2024-01-22 06:45] LABS: HEMOGLOBIN 10.1 g/dl (13.5-18.0); MEAN CELL VOLUME 99 fl (80.0-100.0); MEAN CORPUSCULAR HEMOGLOBIN 33 pg (27-31); MEAN CORPUSCULAR HGB CONC 33 g/dl (33.0-37.0); MEAN PLATELET VOLUME 11.7 fl (7.4-10.4); PLATELET COUNT 173 K/mm3 (130-400); RED BLOOD COUNT 3.11 M/mm3 (4.20-5.60); REDCELL DISTRIBUTION WIDTH-CV 13.2 % (11.5-14.5)
[2024-01-22 06:55] LABS: HEMATOCRIT 30.9 % (42.0-52.0)
[2024-01-22 07:19] LABS: ALBUMIN 1.5 g/dL (3.4-4.8); BILIRUBIN,TOTAL 0.5 mg/dL (0.2-1.2); CALCIUM 7.8 mg/dL (8.4-10.2); CREATININE, serum 2.4 mg/dL (0.72-1.25); POTASSIUM 4.1 mEq/L (3.5-4.5); TOTAL PROTEIN 6.6 g/dl (6.2-8.1)
[2024-01-22 07:37] LABS: BAND 10 % (0-10); EOSINOPHIL 15 % (0-4); LYMPHOCYTE 3 % (20.0-51.0); NEUTROPHILS 70 % (42.0-75.2); PLATELET ESTIMATE NORMAL (NORMAL)
[2024-01-22 07:38] LABS: OVALOCYTES 1+
--- NOTE | 2024-01-22 07:47 | NUR ---
NELSON Reyes notified of critical lab value.
--- NOTE | 2024-01-22 07:59 | NUR ---
Patient drowsy but arousable, confused. Resting in bed. Varela in place draining clear yellow urine. Fall precautions in place. Detox protocol in place. Bed in lowest position with call light within reach, bed alarm on.
[2024-01-22] MEDS ORDERED: Cefepime 1 G in Water For Injection,Sterile 10 ML IV SCH (12:30)
--- NOTE | 2024-01-22 12:32 | NUR ---
SW attended clinical rounds with team. Patient is scheduled for stress test today, now has ID consult. BRUCE spoke with Kylie at [facility] who states they are following for possible admission and will let SW know if they can accept patient. Discharge plan: SB
--- NOTE | 2024-01-22 20:07 | NUR ---
Tele monitoring initiated.
[2024-01-23] VITALS (11 sets, daily range): BP systolic 95–134; BP diastolic 43–58; PULSE 76–95; TEMP 97.1–99.4
--- NOTE | 2024-01-23 02:00 | NUR ---
patient lying in bed, alert and oriented x2 with confusion/forgetfullness. denies chest pain and shortness of breath. PICC in [place] is patent, site is CDI. redness to sacrum blanchable, small, mepilex placed for extra protection, CDI. pt having more audible wheezing, breathing treatment performed, upon reassessment wheezing improved. fall precautions in place, call light within reach. pt has no further needs, questions or concerns at this time.
[2024-01-23] MEDS ORDERED: Furosemide 40 MG/4 ML VIAL IV ONE (04:15)
[2024-01-23] MEDS ORDERED: Albumin (Human) 100 ML IV ONE (04:15)
[2024-01-23 06:57] LABS: HEMOGLOBIN 10.4 g/dl (13.5-18.0); MEAN CELL VOLUME 98 fl (80.0-100.0); MEAN CORPUSCULAR HEMOGLOBIN 33 pg (27-31); MEAN CORPUSCULAR HGB CONC 34 g/dl (33.0-37.0); MEAN PLATELET VOLUME 11.9 fl (7.4-10.4); PLATELET COUNT 165 K/mm3 (130-400); RED BLOOD COUNT 3.15 M/mm3 (4.20-5.60); REDCELL DISTRIBUTION WIDTH-CV 13.6 % (11.5-14.5)
[2024-01-23 07:23] LABS: CALCIUM 8.3 mg/dL (8.4-10.2); CREATININE, serum 2.3 mg/dL (0.72-1.25); POTASSIUM 3.9 mEq/L (3.5-4.5)
[2024-01-23 07:37] LABS: HEMATOCRIT 30.8 % (42.0-52.0)
[2024-01-23 08:07] LABS: BAND 21 % (0-10); EOSINOPHIL 24 % (0-4); LYMPHOCYTE 3 % (20.0-51.0); NEUTROPHILS 48 % (42.0-75.2); PLATELET ESTIMATE NORMAL (NORMAL)
--- NOTE | 2024-01-23 08:30 | NUR ---
PATIENT CRITICAL LAB VALUE REPORTED TO NELSON ABDI.
[2024-01-23] MEDS ORDERED: Sodium Bicarbonate 650 MG TAB PO SCH (10:30)
--- NOTE | 2024-01-23 12:00 | NUR ---
PATIENT RESTING IN BED. HAVING DIFFICULTY BREATHING AT REST. PATIENT ON 4L /.PATENT HAS BEEN NON- COMPLIANT AT TIMES WITH OXYGEN MASK/ NASAL CANNULA. PATIENT EDUCATED ON THE NEEDS TO KEEP IT ON. PATIENT VERBALIZED UNDERSTANDING BUT AT TIMES CONTINUES TO MOVE OXYGEN NASAL CANULA FROM HIS NOSE. PATIENT HAS BLANKENSHIP CATHETER DRAINING YELLOW OUTPUT.PATIENT FAMILY AT BEDSIDE. CALL LIGHT WITHIN REACH. BED AT LOWEST POSITION. BED ALARM ON.
[2024-01-23] MEDS ORDERED: dexAMETHasone 10 MG/ML VIAL IV SCH (14:45)
[2024-01-23] MEDS ORDERED: Sod Phosphates Rectal Enema 133 ML bottle RC PRN (15:15)
[2024-01-23] MEDS ORDERED: Morphine 4 MG/ML VIAL IV PRN (15:15)
[2024-01-23] MEDS ORDERED: Carboxymethylcellulose PF Ophth 0.4 ML DROPPERETTE OP PRN (15:15)
[2024-01-23] MEDS ORDERED: Haloperidol Lactate 5 MG/ML VIAL IV PRN (15:15)
[2024-01-23] MEDS ORDERED: LORazepam 2 MG/ML 1 ML VIAL IV PRN (15:15)
[2024-01-23] MEDS ORDERED: Scopolamine 1 MG Delivered 3-Day PATCH TD SCH (15:15)
[2024-01-23] MEDS ORDERED: Morphine Oral Concentrate 20 MG/ML UD SL PRN (15:15)
--- NOTE | 2024-01-23 16:01 | NUR ---
National Stormwater Leader was notified by Hospitalist that patient will be transitioned to hospice care. BRUCE met with daughter, Cindy who requested referrals be sent to [facility] and [facility] in [place]. BRUCE James sent referrals to both. Discharge Plan: Hospice Placement
--- NOTE | 2024-01-24 00:02 | NUR ---
patient lying in bed, alert and oriented x1 with family at bedside. comfort care interventions in place. pt refusing to wear oxygen per NC at this time, family in agreement with pt comfort. denies pain and pain/discomfort management medications at this time. intermittent dry cough noted, 2329-per pt and family request, NELSON Purcell notified of request for cough suppressant, new orders placed. scopalamine patch in place, mepilex to sacrum for slight blanchable redness, CDI. fall precautions in place, call light within reach. pt and family have no further needs, questions or concerns at this time.
[2024-01-24] MEDS ORDERED: Benzonatate 100 MG CAP PO PRN (00:15)
--- NOTE | 2024-01-24 08:00 | NUR ---
PATIENT ALERT AND ORIENTED TO SELF AND FAMILY. PATIENT ON ROOM AIR. DENIES PAIN AT THIS TIME. REPORTS WANTING TO GET OUT OF HERE.PATIENT FAMILY AT BEDSIDE. PATIENT BLANKENSHIP DRAINING YELLOW CLEAR URINE. PATIENT ON COMFORT CARE. CALL LIGHT WITHIN REACH. BED AT LOWET POSITION. BED ALARM ON.
--- NOTE | 2024-01-24 14:51 | NUR ---
patient resting in bed with family at bedside. no signs of distress at this time. call light within reach. bed at lowest position.
--- NOTE | 2024-01-24 17:21 | NUR ---
Airplane Electrical Repairer spoke with patient's daughters who advised after discussion, they would prefer [facility]. SW was contacted by Tania at [facility] who spoke with the daughter, Cindy and can accept patient tomorrow. BRUCE contacted [facility] and scheduled transport time for 1100. Discharge Plan; [facility] tomorrow at 1100.
--- NOTE | 2024-01-24 21:00 | NUR ---
UPON SHIFT ASSESSMENT, BOTH PATIENT AND DAUGHTER WERE SLEEPING PEACEFULLY. PATIENT DISLODGED O2 NC. WOB CURRENTLY WNL. COMFORT CARE OREDERS IN PLACE. PATIENT EASILY AWAKENS WITH VOICE. STATES NO NEEDS AT THIS TIME. CALL LIGHT WITHIN REACH, BED ALARM ON.
--- NOTE | 2024-01-24 23:02 | NUR ---
PATIENT EXHIBITING ANXIETY, STATED, "I THINK THIS IS IT." LUNG SOUNDS CLEAR NO APNEIC BREATHING NOTE. HR 90 AND ALERT. PRN ATIVAN GIVEN. DAUGHTER BEDSIDE.
--- NOTE | 2024-01-25 07:05 | NUR ---
PATIENT LAYING IN BED RESTING. FAMILY AT BEDSIDE. PATIENT WAS SHORT OF BREATH FAMILY REQUESTED TO BE PLACED ON OXYGEN FOR HIS COMFORT. PATIENT FEELING NAUSEOUS THIS AM PRN WAS GIVEN. PATIENT BLANKENSHIP DRAINING YELLOW URINE. PATIENT CALL LIGHT WITHIN REACH. BED AT LOWEST POSITION. BED ALARM ON.
[2024-01-25 07:57] VITALS: BP 117/59; PULSE 74; TEMP 98
[2024-01-25] MEDS ORDERED: TRANSDERM-0.5 MG/21 TD (08:49)
[2024-01-25] MEDS ORDERED: ROXANOL 20MG20 MG/ML SL (08:49)
[2024-01-25] MEDS ORDERED: DULCOLAX S10 MG/SUPP RC (08:49)
[2024-01-25] MEDS ORDERED: ATIVAN 1MG T1 MG/TAB PO (08:49)
[2024-01-25] MEDS ORDERED: SYSTANE 0.4%-0.1 SOL OU (08:49)
--- NOTE | 2024-01-25 11:07 | NUR ---
PATIENT TRANSPORTED TO HOSPICE HOUSE VIA EMS. PATIENT ACCOMPANIED BY FAMILY EXITING UNIT.
--- NOTE | 2024-01-25 11:52 | NUR ---
Salesperson Automobiles contacted [facility] to confirm picked edge sewing machine operator time of 1100. SW completed EMS forms and placed them on patient's chart. SW followed up with family to provide transport time. SW also contacted Tania at [facility] and sent discharge orders via secure email. Discharge Plan: [facility]
--- NOTE | 2024-01-25 12:32 | NUR ---
CALLED MULTIPLE TIMES TO GIVE REPORT TO NURSE TAKING CARE OF PATIENT AT [facility]. NO ANSWERED.
[2024-01-27] MEDS ORDERED: Amiodarone 200 MG TAB PO SCH (21:00)
[2024-02-04] MEDS ORDERED: Amiodarone 200 MG TAB PO SCH (09:00)
== END 2024-01-25 11:07 | disposition hospice, inpatient (51) | DRG 871 ==
LOC: COL.ER 16:32 → MEDICAL 01-19 03:08
PROVIDERS: Family Medicine; Physician Assistant; ADMIT Internal Medicine
PROC: 02HV33Z Insertion of Infusion Device into Superior Vena Cava, Percutaneous Approach (ICD-10-PCS; principal; 2024-01-22)
DX: A41.9 Sepsis, unspecified organism (principal); J18.9 Pneumonia, unspecified organism; J96.01 Acute respiratory failure with hypoxia; K85.90 Acute pancreatitis without necrosis or infection, unspecified; N17.9 Acute kidney failure, unspecified; E87.20 Acidosis, unspecified; I50.42 Chronic combined systolic (congestive) and diastolic (congestive) heart failure; I42.9 Cardiomyopathy, unspecified; I13.0 Hypertensive heart and chronic kidney disease with heart failure and stage 1 through stage 4 chronic kidney disease, or unspecified chronic kidney disease; Z68.1 Body mass index [BMI] 19.9 or less, adult; I48.20 Chronic atrial fibrillation, unspecified; M84.48XA Pathological fracture, other site, initial encounter for fracture; Z66 Do not resuscitate; N18.9 Chronic kidney disease, unspecified; I48.91 Unspecified atrial fibrillation; I25.10 Atherosclerotic heart disease of native coronary artery without angina pectoris; I08.0 Rheumatic disorders of both mitral and aortic valves; N20.0 Calculus of kidney; K57.30 Diverticulosis of large intestine without perforation or abscess without bleeding; R59.1 Generalized enlarged lymph nodes; F10.20 Alcohol dependence, uncomplicated; D64.9 Anemia, unspecified; G89.4 Chronic pain syndrome; E78.5 Hyperlipidemia, unspecified; K21.9 Gastro-esophageal reflux disease without esophagitis; N40.0 Benign prostatic hyperplasia without lower urinary tract symptoms; D72.829 Elevated white blood cell count, unspecified; R63.6 Underweight; R45.1 Restlessness and agitation; G47.00 Insomnia, unspecified; E86.0 Dehydration; Z79.891 Long term (current) use of opiate analgesic; Z79.82 Long term (current) use of aspirin; Z95.5 Presence of coronary angioplasty implant and graft; Z91.81 History of falling; Z87.891 Personal history of nicotine dependence
CPT/HCPCS: A9270; C1751; J0282; J0692; J0696; J1100; J1644; J1940; J2060; J2405; J2470; J3411; J7030; J7040; J7060; P9047; Q3014